=== PATIENT | female | born 1970 | race Caucasian/White ===

== ENCOUNTER 2017-05-10 11:11 | Emergency (ER) | payer MEDICAID ==
[~2017-05-10] VITALS: Ht 165.1 cm; Wt 75.5 kg
[2017-05-10 11:42] VITALS: BP 137/92
[2017-05-10] MEDS ORDERED: HYDROcodone/APAP 5/325 TABLET PO PRN (12:00)
[2017-05-10] MEDS ORDERED: ONDANSETRON ODT 4 MG PO ONE (12:00)
[2017-05-10] MEDS ORDERED: ONDANSETRON ODT 4 MG ONE (12:12)
[2017-05-10] MEDS ORDERED: HYDROcodone/APAP 5/325 TABLET ONE (12:12)
== END 2017-05-10 13:47 | disposition home or self-care (01) ==
LOC: ED 13:00
DX: S00.93XA Contusion of unspecified part of head, initial encounter (principal); S80.11XA Contusion of right lower leg, initial encounter; S90.02XA Contusion of left ankle, initial encounter; J45.909 Unspecified asthma, uncomplicated; F17.200 Nicotine dependence, unspecified, uncomplicated; Y04.8XXA Assault by other bodily force, initial encounter; Y93.89 Activity, other specified; Y92.89 Other specified places as the place of occurrence of the external cause; Y99.9 Unspecified external cause status
CPT/HCPCS: 70450; 73590; 73610; 99284; Q0162

== ENCOUNTER 2017-06-03 05:35 | Emergency (ER) | payer MEDICAID ==
[~2017-06-03] VITALS: Ht 165.1 cm; Wt 71.2 kg
[2017-06-03 05:36] VITALS: BP 137/83
[2017-06-03] MEDS ORDERED: LORazepam 1MG TABLET PO ONE (06:00)
[2017-06-03] MEDS ORDERED: LORazepam 1MG TABLET ONE (06:02)
== END 2017-06-03 08:30 | disposition home or self-care (01) ==
LOC: ED 07:01
DX: R06.00 Dyspnea, unspecified (principal); F41.1 Generalized anxiety disorder; G89.29 Other chronic pain; M54.9 Dorsalgia, unspecified; J45.909 Unspecified asthma, uncomplicated
CPT/HCPCS: 71020; 93005; 99284

== ENCOUNTER 2017-06-04 19:32 | Observation (INO) | payer MEDICAID ==
[~2017-06-04] VITALS: Ht 165.1 cm; Wt 76.0 kg
[2017-06-04 21:02] LABS: ASPARTATE AMINO TRANSFERASE 35 U/L (15-37); BLOOD UREA NITROGEN 13 mg/dL (7-18)
[2017-06-04] MEDS ORDERED: ZIPRASIDONE 20 MG INJ IM ONE ×2 (21:04→21:30)
[2017-06-04 21:07] LABS: ACETAMINOPHEN < 2 mcg/mL (10-30)
[2017-06-04 21:08] LABS: HEMOGLOBIN 14.3 g/dL (11.7-16.4); WHITE BLOOD COUNT 11.5 x10^3/uL (3.4-10)
[2017-06-04] MEDS ORDERED: LORazepam 2 MG/ML, 1ML IM ONE (23:00)
[2017-06-04] MEDS ORDERED: LORazepam 2 MG/ML, 1ML ONE (23:09)
[2017-06-05 07:15] VITALS: BP 130/74
[2017-06-05 08:23] LABS: DAU SCREEN DISCLAIMER
[2017-06-05] MEDS ORDERED: LORazepam 1MG TABLET PO PRN (11:00)
[2017-06-05] MEDS ORDERED: LORazepam 2 MG/ML, 1ML IM PRN (11:00)
[2017-06-05] MEDS ORDERED: DOCUSATE 100 MG CAPSULE PO PRN (11:00)
[2017-06-05] MEDS ORDERED: ONDANSETRON ODT 4 MG PO PRN (11:00)
[2017-06-05 11:28] VITALS: BP 110/69
[2017-06-05] MEDS ORDERED: SULFAMETH./TRIMETHOPRIM DS 800MG/160MG TABLET ONE (12:28)
[2017-06-05] MEDS ORDERED: NICOTINE 14MG/24 HR PATCH.TD24 TD SCH (12:30)
[2017-06-05] MEDS ORDERED: SULFAMETH./TRIMETHOPRIM DS 800MG/160MG TABLET PO SCH (21:00)
== END 2017-06-05 15:13 ==
LOC: ED 20:25 → EDIP 06-05 09:02 → 3E 06-05 09:50
PROVIDERS: ADMIT Internal Medicine; ATTEND Internal Medicine
DX: R45.851 Suicidal ideations (principal); F32.9 Major depressive disorder, single episode, unspecified; F41.1 Generalized anxiety disorder; J45.909 Unspecified asthma, uncomplicated; F12.90 Cannabis use, unspecified, uncomplicated; F17.210 Nicotine dependence, cigarettes, uncomplicated
CPT/HCPCS: 36415; 80053; 80307; 80329; 81001; 84439; 84443; 84703; 85025; 87086; 93005; 96372; 99285; G0378; J2060; J3486; G0479; G0480